=== PATIENT | male | born 1990 | race Two or more races ===

== ENCOUNTER 2025-06-12 16:29 | Emergency (ER) | payer OTHER ==
[~2025-06-12] VITALS: Ht 167.6 cm; Wt 101.0 kg
[2025-06-12 16:31] VITALS: BP 147/86; PULSE 88; RESP 19; TEMP 97.9; O2SAT 97
--- NOTE | 2025-06-12 16:54 | ED.PDOC ---
General HPI Comments This is a 34 year old male presenting to the ED with chief complaint of left back and flank pain. Patient reports that he has been experiencing left sided back pain that radiates to his left upper flank for the past hour. Patient relays that breathing in deeply worsens his pain. Patient states he took 800mg of Ibuprofen prior to coming in with no relief. Patient denies any dysuria, hematuria, nausea, vomiting, diarrhea, fever, or constipation. Chief Complaint: Flank Pain Time Seen by MD: 16:53 Reviewed notes: Nurses Notes, Medications, Allergies Allergies: Coded Allergies: NO KNOWN ALLERGIES (Unverified , 06/12/25) Information Source: Patient Mode of Arrival: Ambulatory Severity: Moderate Timing: Hours Duration: Since onset Prehospital treatment: None Onset: Spontaneous Symptoms: None History of: None Location: Abdomen, (L)Flank associated signs and symptoms: Abdominal Pain, Flank Pain Past Medical History PAST MEDICAL HISTORY: Anxiety Surgical History: Appendectomy Family History Family History: Reviewed,noncontributory to illness Social History Smoker: Non-Smoker Alcohol: Denies ETOH Use Drugs: Denies Drug Use Lives In: Home Constitutional: denies: chills, diaphoresis, fatigue, fever, malaise, sweats, weakness, others EENTM: denies: blurred vision, double vision, ear bleeding, ear discharge, ear drainage, ear pain, ear ringing, eye pain, eye redness, hearing loss, mouth pain, mouth swelling, nasal discharge, nose bleeding, nose congestion, nose pain, photophobia, tearing, throat pain, throat swelling, voice changes, others Respiratory: denies: cough, hemoptysis, orthopnea, SOB at rest, shortness of breath, SOB with excertion, stridor, wheezing, others Cardiovascular: denies: chest pain, dizzy spells, diaphoresis, Dyspnea on e xertion, edema, irregular heart beat, left arm pain, lightheadedness, palpitations, PND, syncope, others Gastrointestinal: reports: abdominal pain; denies: abdomen distended, blood streaked bowels, constipated, diarrhea, dysphagia, difficulty swallowing, hematemesis, melena, nausea, poor appetite, poor fluid intake, rectal bleeding, rectal pain, vomiting, others Genitourinary: reports: flank pain; denies: burning, dysuria, frequency, hematuria, incontinence, penile discharge, penile sore, pain, testicle pain, testicle swelling, urgency, others Neurological: denies: dizziness, fainting, headache, left sided numbness, left sided weakness, numbness, paresthesia, pre-existing deficit, right sided numbness, right sided weakness, seizure, speech problems, tingling, tremors, weakness, others Musculoskeletal: denies: back pain, gout, joint pain, joint swelling, muscle pain, muscle stiffness, neck pain, others Integumetry: denies: bruises, change in color, change in hair/nails, dryness, laceration, lesions, lumps, rash, wounds, others Allergic/Immunocompromised: denies: Difficulty Healing, Frequent Infections, Hives, Itching, others Hematologic/Lymphatic: denies: anemia, blood clots, easy bleeding, easy bruising, swollen glands, others Endocrine: denies: excessive hunger, excessive sweating, excessive thirst, excessive urination, flushing, intolerance to cold, intolerance to heat, unexplained weight gain, unexplained weight loss, others Psychiatric: denies: anxiety, bipolar disorder, depression, hopeless, panic disorder, schizophrenia, sleepless, suicidal, others All Other Systems: Reviewed and Negative Physical Exam General Appearance: Mild Distress, Obese HEENT: Other (Vitals and face symmetric. Moist mucous membranes.) Neck: Full Range of Motion, Normal Inspection Respiratory: Lungs Clear, No Accessory Muscle Use, No Respiratory Distress, Normal Breath Sounds Cardiovascular: No Edema, No JVD, Regular Rate/Rhythm Breast Exam: Deferred Gastrointestinal: Non Tender, Soft Genitalia: Deferred Pelvic: Deferred Rectal: Deferred Extremities: Normal inspection, Normal range of motion, Non-tender, No pedal edema Musculoskeletal : Location: Left Extremity Location: Back (Left lower thoracic back localized soft tissue tenderness/muscle spasm) Apperance: Normal, Tenderness: Mild Neurologic: Alert (Oriented x4), Normal Affect, Normal Mood, Other (Ambulatory) Cerebellar Function: NOT DONE Reflexes: NOT DONE Skin: Dry, Normal Color, Warm Lymphatic: NOT DONE Was a procedure done? Was a procedure done?: No Differential Diagnosis Kidney stone (Female): Musculoskeletal pain Kidney stone (Male): AAA, Aortic dissection, Pyelonephritis, Urolithiasis, Urinary tract infection X-Ray, Labs, Meds, VS Vital Signs Date Time Temp Pulse Resp B/P (MAP) Pulse Ox O2 Delivery O2 Flow Rate FiO2 06/12/25 16:31 97.9 88 19 147/86 97 97.9 Lab Test 06/12/25 17:29 Range/Units White Blood Count 11.1 H 4.4-10.8 10^3/uL Red Blood Count 4.89 4.5-5.90 10^6/uL Hemoglobin 14.4 13.5-17.5 g/dL Hematocrit 41.6 41.0-53.0 % Mean Corpuscular Volume 85.2 80.0-100.0 fL Mean Corpuscular Hemoglobin 29.5 28.0-32.0 pg Mean Corpuscular Hemoglobin Concent 34.7 32.0-36.0 g/dL Red Cell Distribution Width 13.7 11.8-14.3 % Platelet Count 360 140-450 10^3/uL Mean Platelet Volume 6.1 L 6.9-10.8 fL Neutrophils (%) (Auto) 73.8 37.0-80.0 % Lymphocytes (%) (Auto) 19.6 10.0-50.0 % Monocytes (%) (Auto) 6.3 0.0-12.0 % Eosinophils (%) (Auto) 0.1 0.0-7.0 % Basophils (%) (Auto) 0.2 0.0-2.0 % Neutrophils # (Auto) 8.2 1.6-8.6 10 ^3/uL Lymphocytes # (Auto) 2.2 0.4-5.4 10 ^3/uL Monocytes # (Auto) 0.7 0-1.3 10 ^3/uL Eosinophils # (Auto) 0 0-0.8 10 ^3/uL Basophils # (Auto) 0 0-0.2 10 ^3/uL Nucleated Red Blood Cells 0.0 % Sodium Level 138 136-145 mmol/L Potassium Level 4.0 3.5-5.1 mmol/L Chloride Level 100 98-107 mmol/L Carbon Dioxide Level 26 20-31 mmol/L Anion Gap 12 5-15 Blood Urea Nitrogen 8 L 9-23 mg/dL Creatinine 1.17 0.700-1.30 mg/dL Glomerular Filtration Rate Calc 84 >90 mL/min BUN/Creatinine Ratio 6.8 L 10.0-20.0 Serum Glucose 94 74-106 mg/dL Calcium Level 9.5 8.7-10.4 mg/dL Current Medications Medications (Trade) Dose Ordered Sig/Toño Route Start Time Stop Time Status Last Admin Ketorolac Tromethamine (Toradol Injection) 60 mg ONCE ONCE IM 06/12/25 17:00 06/12/25 17:01 DC 06/12/25 17:00 Methocarbamol (Robaxin) 1,000 mg ONCE ONCE PO 06/12/25 17:00 06/12/25 17:01 DC 06/12/25 17:00 Acetaminophen/ Hydrocodone Bitart ([place] 5/325MG Tab) 1 tab ONCE ONCE PO 06/12/25 17:00 06/12/25 17:01 DC 06/12/25 17:00 PROCEDURE(s): ABPL - CT AB PEL WO CON-NO ORAL OR IV REASON: L back/flank pain ORDER NUMBER(s): [id number], ACCESSION NUMBER(s): [id number] 618.45 x 593.74 INDICATION: L back/flank pain TECHNIQUE: Serial axial images were performed through the abdomen and pelvis and then reformatted in the sagittal and coronal plane. All CT scans at this medical facility are performed using dose modulation techniques as appropriate to a performed exam including the following: Automated exposure control was utilized; adjustment of the MA and/or KvP according to patient size; and use of iterative reconstruction technique. FINDINGS: Liver and spleen are normal in size without focal mass. No renal masses or hydronephrosis. There are 2 or 3 1 mm nonobstructive calculi in the left kidney No masses or enlargement of the adrenal glands or pancreas. No biliary dilatation. No gallstones. No distention of bowel loops to suggest mechanical obstruction of bowel. The appendix is normal in appearance. No free fluid. Within the pelvis, the bladder is incompletely distended without stones.. No abnormal masses or fluid collections. IMPRESSION: 1. Tiny 1 mm nonobstructive calculi are present in the left kidney. Computed Tomographic Radiation Dosimetry Report: Total CTDI vol = 25.23mGy Total DLP = 25.23mGy-cm Low dose protocols were performed. X-Ray, Labs, Meds, VS Comment 34-year-old male with a history of depression and anxiety complaining of left- sided back pain radiating to the left flank Vitals remarkable for BP 147/86 Exam remarkable for localized left lower thoracic back soft tissue tenderness CT abdomen and pelvis IMPRESSION: 1. Tiny 1 mm nonobstructive calculi are present in the left kidney. CBC remarkable for WBC 11.1 and basic metabolic panel unremarkable. UA pending Patient treated with the following in the ED: Toradol 60 mg IM, [place] 5/325 mg p.o., Robaxin 1 g p.o. On re-evaluation, pain has improved and vitals were stable. 1 mm nonobstructive left renal calculi may be the cause of pain, however localized soft tissue te nderness/muscle spasm is more likely the cause. Patient appears stable for discharge with close outpatient follow-up with his primary physician for referral to an urologist. Patient will also be referred to Dr. Vaca. Rx ibuprofen, [place], Robaxin Images Reviewed?: Images reviewed and evaluated by me Time of 1ST Reevaluation: 17:51 Reevaluation 1ST: Unchanged Patient Education/Counseling: Diagnosis, Treatment Family Education/Counseling: No Family Present SEPSIS Sepsis Screen Date sepsis recognized/suspect: Jun 12, 2025 Time Sepsis recognized/suspect: 163 Recent Procedure: No On Antibiotic Therapy: No Respiratory Rate >20: No Heart Rate >90: No Temp<36 C (96.8 F) or >38.3 C: No SBP <90 or MAP <65 mmHG: No New Acute Mental Status Change: No Is the patient on CPAP, BIPAP,: No Physician Orders Urinalysis (06/12/25 16:51) Ct Ab Pel Wo Con-No Oral Or Iv (06/12/25 16:51) Vital Signs Date Time Temp Pulse Resp B/P (MAP) Pulse Ox O2 Delivery O2 Flow Rate FiO2 06/12/25 16:31 97.9 88 19 147/86 97 97.9 Laboratory Tests Test 06/12/25 17:29 White Blood Count 11.1 10^3/uL (4.4-10.8) H Medications Medications Dose Ordered Sig/Toño Route Start Time Stop Time Status Last Admin Dose Admin Acetaminophen/ Hydrocodone Bitart 1 tab ONCE ONCE PO 06/12/25 17:00 06/12/25 17:01 DC 06/12/25 17:00 Ketorolac Tromethamine 60 mg ONCE ONCE IM 06/12/25 17:00 06/12/25 17:01 DC 06/12/25 17:00 Methocarbamol 1,000 mg ONCE ONCE PO 06/12/25 17:00 06/12/25 17:01 DC 06/12/25 17:00 Departure 1 Departure Time of Disposition: 19:13 Impression: Primary Impression: Acute thoracic back pain Qualified Codes: M54.6 - Pain in thoracic spine Additional Impression: Left nephrolithiasis Disposition: HOME / SELF CARE / HOMELESS Condition: Stable Referrals: ROBBY VACA MD Additional Instructions: Your blood tests were unremarkable. Your CT scan showed small stones in your left kidney. This does not require emergent treatment other than pain medication. I have enclosed the report below to show your doctor when you follow-up. Your pain may be due to the kidney stones, or may be due to a muscle spasm. I have prescribed pain medication and muscle relaxers. Follow-up with your primary doctor in 1-2 days for referral to an urologist for further evaluation of your kidney stones. Alternatively, follow-up directly with Dr. Vaca. Return to ER for persistent or worsening symptoms. [place] [id number] Ph: [phone] DIAGNOSTIC IMAGING Diagnostic Imaging Report : [id number] Signed PATIENT: WAYNE NEGRON ACCT: [id number] UNIT: [id number] : 1990 LOC: ER ROOM / BED: / AGE / SEX: 34 / M ADM STATUS: REG ER SERVICE 1651 ORDERING PHYSICIAN: ALCIRA BOWER MD PROCEDURE(s): ABPL - CT AB PEL WO CON-NO ORAL OR IV REASON: L back/flank pain ORDER NUMBER(s): [id number], ACCESSION NUMBER(s): [id number] 618.45 x 593.74 INDICATION: L back/flank pain TECHNIQUE: Serial axial images were performed through the abdomen and pelvis and then reformatted in the sagittal and coronal plane. All CT scans at this medical facility are performed using dose modulation techniques as appropriate to a performed exam including the following: Automated exposure control was utilized; adjustment of the MA and/or KvP according to patient size; and use of iterative reconstruction technique. FINDINGS: Liver and spleen are normal in size without focal mass. No renal masses or hydronephrosis. There are 2 or 3 1 mm nonobstructive calculi in the left kidney No masses or enlargement of the adrenal glands or pancreas. No biliary dilatation. No gallstones. No distention of bowel loops to suggest mechanical obstruction of bowel. The appendix is normal in appearance. No free fluid. Within the pelvis, the bladder is incompletely distended without stones.. No abnormal masses or fluid collections. IMPRESSION: 1. Tiny 1 mm nonobstructive calculi are present in the left kidney. Computed Tomographic Radiation Dosimetry Report: Total CTDI vol = 25.23mGy Total DLP = 25.23mGy-cm Low dose protocols were performed. e-Prescriptions Hydrocodone-Acetaminophen (Hydrocodone Bitartrate/AC 5-325 mg) 1 Tab Tab 1-2 TAB PO Q6HP PRN, #20 TAB Prn breakthrough pain Prov: ALCIRA BOWER MD 06/12/25 Methocarbamol (Methocarbamol) 500 Mg Tab 1000 MG PO Q8HP PRN, #30 TAB PRN muscle spasm Prov: ALCIRA BOWER MD 06/12/25 Ibuprofen Micronized (Ibuprofen) 800 Mg Tab 800 MG PO Q8HP PRN, #30 TAB Prn pain. Take with food. Prov: ALCIRA BOWER MD 06/12/25 Discharged With: Relative Critical Care Note Critical Care Time?: No Stability Stability form required: No Heart Score Heart Score: Heart Score Response (Comments) Value History N/A 0 EKG N/A 0 Age N/A 0 Risk Factors N/A 0 Troponin N/A 0 Total 0 I personally scribed for ALCIRA BOWER MD ([email or web address]) on 06/12/25 at 16:54. Electronically submitted by Tarik Adams ([email or web address]). I personally scribed for ALCIRA BOWER MD ([email or web address]) on 06/12/25 at 18:06. Electronically submitted by Tarik Adams ([email or web address]). ALCIRA BOWER MD Jun 12, 2025 16:54
[2025-06-12] MEDS: KETOROLAC TROMETH 60MG/2ML VIAL IM ONE (17:00)
[2025-06-12] MEDS: HYDROcodone-ACET 5/325MG TAB PO ONE (17:00)
[2025-06-12] MEDS: METHOCARBAMOL 500 MG TAB PO ONE (17:00)
--- NOTE | 2025-06-12 17:31 | DVH ---
618.45 x 593.74 INDICATION: L back/flank pain TECHNIQUE: Serial axial images were performed through the abdomen and pelvis and then reformatted in the sagittal and coronal plane. All CT scans at this medical facility are performed using dose modula tion techniques as appropriate to a performed exam including the following: Automated exposure contro l was utilized; adjustment of the MA and/or KvP according to patient size; and use of iterative recon struction technique. FINDINGS: Liver and spleen are normal in size without focal mass. No renal masses or hydronephrosis. There are 2 or 3 1 mm nonobstructive calculi in the left kidney No masses or enlargement of the adrenal glands or pancreas. No biliary dilatation. No gallstones. No distention of bowel loops to suggest mechanical obstruction of bowel. The appendix is normal in ap pearance. No free fluid. Within the pelvis, the bladder is incompletely distended without stones.. No abnormal masses or fluid collections. IMPRESSION: 1. Tiny 1 mm nonobstructive calculi are present in the left kidney. Computed Tomographic Radiation Dosimetry Report: Total CTDI vol = 25.23mGy Total DLP = 25.23mGy-cm Lo w dose protocols were performed.
[2025-06-12 17:58] LABS: Hematocrit 41.6 % (41.0-53.0); Hemoglobin 14.4 g/dL (13.5-17.5); Mean Corpuscular Hemoglobin 29.5 pg (28.0-32.0); Mean Corpuscular Volume 85.2 fL (80.0-100.0); Nucleated Red Blood Cells % 0.0 %
[2025-06-12 18:03] LABS: Anion Gap 12 (5-15); Carbon Dioxide 26 mmol/L (20-31); Chloride 100 mmol/L (98-107); Potassium 4.0 mmol/L (3.5-5.1); Sodium 138 mmol/L (136-145)
[2025-06-12 18:04] LABS: Calcium 9.5 mg/dL (8.7-10.4)
[2025-06-12 18:09] LABS: BUN/Creatinine Ratio 6.8 (10.0-20.0); Glucose 94 mg/dL (74-106)
[2025-06-12 18:27] LABS: Blood Urea Nitrogen 8 mg/dL (9-23)
[2025-06-12] MEDS ORDERED: HYDR-4902 PO (19:19)
[2025-06-12] MEDS ORDERED: IBUP-1455 PO (19:19)
[2025-06-12] MEDS ORDERED: METH-1181 PO (19:19)
== END 2025-06-12 21:08 | disposition home or self-care (01) ==
LOC: ER 16:29
DX: N20.0 Calculus of kidney (principal); M54.6 Pain in thoracic spine; F41.9 Anxiety disorder, unspecified; Z90.49 Acquired absence of other specified parts of digestive tract
CPT/HCPCS: 36415; 74176; 80048; 85025; 96372; 99285; J1885